=== PATIENT | female | born 1980 | race Caucasian/White ===

== ENCOUNTER 2016-08-19 09:39 | Emergency (ER) | payer OTHER ==
--- NOTE | ~2016-08-19 | CT71 ---
[facility] A Service [facility] RADIOLOGY TEXT RESULTS PATIENT: ERMIAS RILEY LOCATION: SED : 76 UNIT #: [id number] AGE: [address]: Lele Miguel MD SEX: F ORDER DR: [id number] [place] [id number] E MR#: [id number] Acc #: [id number] NAME: ERMIAS RILEY : 1980 SEX: F STUDY DATE/TIME: 08/19/2016 9:49 UNIT: SED ROOM: STUDY DESCRIPTION: CT Head Wo Contrast Attending Physician: Lele Miguel M.D. Ordering Physician: Lele Miguel M.D. Primary Care Physician: Primary Care Physician No MEDICAL IMAGING REPORT This report is preliminary unless electronic signature is present. EXAM CT of the head without contrast INDICATION Hand and face numbness. Bilateral hand tingling for [address] of the head without contrast. This CT examination was performed with one or more of the following radiation dose reduction techniques: automatic exposure control, adjustment of mA and/or kV according to patient size, and iterative reconstruction. COMPARISON CT head dated 08/18/2010. FINDINGS Axial noncontrast images were obtained from the skull base to the vertex. Ventricular size and configuration are normal. There is no evidence of acute infarct or hemorrhage. There are no extraaxial fluid collections. No mass lesion or mass effect is seen. There are no skull fractures. There is atelectasis and chronic consolidation involving the left maxillary sinus. IMPRESSION Normal noncontrast head CT. Dictated by... Michael Lucas M.D. THIS IS AN ELECTRONICALLY VERIFIED REPORT Michael Lucas M.D. at 08/19/2016 10:58 AM [facility] A Service [facility] RADIOLOGY TEXT RESULTS PATIENT: ERMIAS RILEY LOCATION: SED : 76 UNIT #: [id number] AGE: [address]: Lele Miguel MD SEX: F ORDER DR: DANIELLE/frida TD: 08/19/2016 10:53 JOB #: [id number] MEDICAL IMAGING REPORT
--- NOTE | ~2016-08-19 | EKG ---
PATIENT: ERMISA RILEY UNIT #: [id number] Ventricular Rate: 87 BPM Atrial Rate: 87 BPM P-R Interval: 146 ms QRS Duration: 76 ms Q-T Interval: 350 ms QTC Calculation(Bezet): 421 ms P Ary: 77 degrees Calculated R Ary: 44 degrees Calculated T Ary: 42 degrees Diagnosis Line: Normal sinus rhythm Diagnosis Line: Low voltage QRS Diagnosis Line: Otherwise normal ECG Diagnosis Line: Diagnosis Line: Confirmed by NANI WILL MD ([id number]) on 08/19/2016 Diagnosis Line: 5:37:38 PM INTERPRETING MD: SUMAN REED
[~2016-08-19 09:39] MED LIST: AMOXICILLIN PO; AMOXICILLIN500 M1 PO; IBUPROFEN PO; KEFLEX PO; MOTRIN600 MG PO; NAPROXEN PO; NO MEDICATIONS; PEN-VEE K PO; PHENERGAN PO; PRENATAL W/FOLI1 TA1 PO; VISCOUS XYLOCAINE TOP
[2016-08-19 09:40] LABS: ARTERIAL BLD GAS O2 SATURATION 55.5 % (90.0-100.0); ARTERIAL BLOOD GAS CARBOXY HB 10.2 %sat (0.0-9.0); ARTERIAL BLOOD GAS HCO3 26.4 mmol/L
[2016-08-19 09:42] LABS: ARTERIAL BLOOD GAS ALLEN TEST NORMAL; ARTERIAL BLOOD GAS ART SITE RIGHT RADIAL; ARTERIAL BLOOD GAS MET HB -0.7 %sat (0.0-2.0); ARTERIAL DRAW? YES
[2016-08-19 09:48] LABS: BASOPHIL% 0.3 % (0-2.5); EOSINOPHIL# 0.1 X10e3 (0-0.7); EOSINOPHIL% 1.7 % (0.0-7.0); HEMATOCRIT 42.4 % (35.0-45.0); HEMOGLOBIN 14.3 gm/dL (12.0-16.0); LYMPHOCYTE# 1.9 X10e3 (1.0-3.5); LYMPHOCYTE% 27.4 % (17.0-45.0); MEAN CELL VOLUME 93.9 FL (83-96); MEAN CORPUSCULAR HEMOGLOBIN 31.7 PG (28-34); MEAN CORPUSCULAR HGB CONC 33.8 g/dL (30-36); MONOCYTE# 0.7 X10e3 (0-1.0); MONOCYTE% 9.9 % (3.0-12.0); NEUTROPHIL# 4.2 X10e3 (1.5-7.1); NEUTROPHIL% 60.7 % (40-75); PLATELET COUNT 361 X10e3 (140-420); RED BLOOD COUNT 4.51 X10e (3.90-5.30); RED CELL DISTRIBUTION WIDTH 13.3 % (11.0-15.5); WHITE BLOOD COUNT 6.9 X10e3 (4.0-10.5)
[2016-08-19 09:58] LABS: DIFF IND NO
[2016-08-19 10:02] LABS: POC - CKMB <1.0 ng/mL (0.0-7.9); POC - TROPONIN <0.05 ng/mL (<=0.05)
[2016-08-19 10:04] LABS: INR 1.1; PROTHROMBIN TIME (PATIENT) 12.6 SECONDS (9.5-12.4)
[2016-08-19 10:11] LABS: PARTIAL THROMBOPLASTIN TIME 25.8 SECONDS (25.6-38.1)
[2016-08-19 10:12] LABS: ALBUMIN SERUM 4.1 g/dL (3.5-5.0); ALKALINE PHOSPHATASE 78 U/L (32-92); ALT (SGPT) 20 U/L (10-40); AST (SGOT) 16 U/L (10-42); BILIRUBIN, DIRECT 0.1 mg/dL (0.0-0.2); BILIRUBIN,INDIRECT 0.6 mg/dL (0.0-0.9); BILIRUBIN,TOTAL 0.7 mg/dL (0.2-2.0); BLOOD UREA NITROGEN 10 mg/dL (9-23); CALCIUM SERUM 9.4 mg/dL (8.4-10.2); CARBON DIOXIDE 26 mmol/L (22-31); CHLORIDE 105 mmol/L (100-111); CREATININE SERUM 0.5 mg/dL (0.6-1.4); GLOM FILT RATE Estimated ABOVE60 mL/min (>60); GLUCOSE FASTING 91 mg/dL (70-110); POTASSIUM 4.1 mmol/L (3.5-5.1); PROTEIN TOTAL SERUM 7.4 g/dL (6.0-8.3); SODIUM 139 mmol/L (135-145)
== END 2016-08-19 10:42 | disposition home or self-care (01) ==
LOC: SED 09:39
PROVIDERS: Emergency Medicine
DX: R06.4 Hyperventilation (principal); F17.200 Nicotine dependence, unspecified, uncomplicated
CPT/HCPCS: 36415; 36600; 70450; 80048; 80076; 82553; 82803; 82947; 83874; 84484; 85025; 85610; 85730; 93005; 99284